=== PATIENT | female | born 1935 | race Caucasian/White ===

== ENCOUNTER 2016-11-12 11:28 | Inpatient (IN) | payer MEDICARE, OTHER ==
[~2016-11-12] VITALS: Ht 152.4 cm; Wt 60.8 kg
[2016-11-12 12:34] LABS: BILIRUBIN 2+ mg/dL (NEGATIVE); BLOOD NEGATIVE Ery/uL (NEGATIVE); CLARITY CLEAR (CLEAR); COLOR YELLOW (YELLOW); GLUCOSE (U) NORMAL (NORMAL); KETONE (U) TRACE mg/dL (NEGATIVE); LEUKOCYTES TRACE Leu/uL (NEGATIVE); NITRITE NEGATIVE (NEGATIVE); PROTEIN 1+ mg/dL (NEGATIVE)
[2016-11-12 12:42] LABS: AMORPHOUS URATES CRYSTALS TRACE; MUCOUS MODERATE
[2016-11-12 12:50] LABS: BASOPHIL 0.3 % (0-2); EOSINOPHIL 2.4 % (0-7); HCT 22.6 % (37.0-47.0); HGB 7.5 g/dl (12.5-16.0); LYMPHOCYTE 9.1 % (15-48); MCH 36.9 pg (25.0-31.0); MCHC 33.2 g/dL (32.0-36.0); MCV 111.3 fL (78.0-100.0); MONOCYTE 7.8 % (0-12); MPV 12.6 fL (6.0-9.5); NEUTROPHIL 80.4 % (41-80); PLT 196 K/uL (150-400); RBC 2.03 M/uL (4.20-5.40); RDW 14.5 % (11.5-14.0); WBC 9.4 K/uL (4.0-10.5)
[2016-11-12 13:02] LABS: ALBUMIN 3.6 g/dL (3.4-4.8); BILIRUBIN - TOTAL 1.3 mg/dL (0.1-1.0); CREATININE 1.3 mg/dL (0.5-1.0); GLOBULIN (CALCULATION) 3.5 g/dL (2.2-4.2); POTASSIUM 3.9 mmol/L (3.5-5.1); TOTAL PROTEIN 7.1 g/dL (6.4-8.3)
[2016-11-12 13:04] LABS: LACTIC ACID 2.2 mmol/L (0.5-2.2)
[2016-11-12 13:12] LABS: TOTAL T4 6.02 ug/dL (5.1-14.1); TSH (THYROID STIM HORMONE) 2.81 uIU/mL (0.270-4.200)
[2016-11-13 08:45] LABS: BASOPHIL 0.2 % (0-2); EOSINOPHIL 0 % (0-7); HCT 27.9 % (37.0-47.0); HGB 9.3 g/dl (12.5-16.0); LYMPHOCYTE 16.1 % (15-48); MCH 34.1 pg (25.0-31.0); MCHC 33.3 g/dL (32.0-36.0); MCV 102.2 fL (78.0-100.0); MONOCYTE 2.7 % (0-12); MPV 11.6 fL (6.0-9.5); PLT 158 K/uL (150-400); RBC 2.73 M/uL (4.20-5.40); RDW 20.1 % (11.5-14.0); WBC 6.2 K/uL (4.0-10.5)
[2016-11-13 09:00] LABS: CREATININE 0.8 mg/dL (0.5-1.0); POTASSIUM 3.9 mmol/L (3.5-5.1)
== END 2016-11-14 12:52 | disposition home or self-care (01) | DRG 193 ==
LOC: FER 11:28 → FMS 15:35
PROVIDERS: Internal Medicine; ADMIT Internal Medicine
PROC: 30233N1 Transfusion of Nonautologous Red Blood Cells into Peripheral Vein, Percutaneous Approach (ICD-10-PCS; principal; 2016-11-12)
DX: J18.9 Pneumonia, unspecified organism (principal); G93.41 Metabolic encephalopathy; N17.9 Acute kidney failure, unspecified; D46.9 Myelodysplastic syndrome, unspecified; K21.9 Gastro-esophageal reflux disease without esophagitis; E03.9 Hypothyroidism, unspecified; F32.9 Major depressive disorder, single episode, unspecified; M19.90 Unspecified osteoarthritis, unspecified site; F41.9 Anxiety disorder, unspecified; Z90.710 Acquired absence of both cervix and uterus; Z96.612 Presence of left artificial shoulder joint; Z87.891 Personal history of nicotine dependence; Z80.9 Family history of malignant neoplasm, unspecified; Z83.3 Family history of diabetes mellitus
CPT/HCPCS: 36415; 36430; 70450; 71020; 80048; 80053; 81001; 83605; 84145; 84436; 84443; 84484; 85025; 86403; 86850; 86900; 86901; 86922; 87040; 87070; 87077; 87186; 87205; 93005; 94010; 94640; 94668; 94762; 97116; 97162; 97165; 97530-GP; 97535; J0456; J2930; P9016

== ENCOUNTER 2020-10-14 23:19 | Emergency (ER) | payer MEDICARE, OTHER ==
[~2020-10-14 23:19] MED LIST: ASPIRIN CHEWABL81 MG PO; AZITHROMYCIN250 MG PO; BUSPAR5 MG PO; CERTAGEN1 EACH PO; CYMBALTA60 MG PO; LASIX20 MG PO; LYRICA25 MG PO; MUCINEX DM ER1 EACH PO; NEBULIZER UNIT NEB; NORCO 5-325 TA1 EACH PO; PRILOSEC20 MG PO; SYNTHROID25 MCG PO; VENTOLIN (2.5 MG/3 M INH; VOLTAREN **OUT50 MG PO; ZPAK PO
[2020-10-14 23:52] LABS: BASOPHIL 0.3 % (0-2); EOSINOPHIL 0.3 % (0-7); HCT 34.5 % (37.0-47.0); HGB 11.3 g/dl (12.5-16.0); LYMPHOCYTE 5.9 % (15-48); MCH 34.8 pg (25.0-31.0); MCHC 32.8 g/dL (32.0-36.0); MCV 106.2 fL (78.0-100.0); MONOCYTE 6.4 % (0-12); NEUTROPHIL 85.1 % (41-80); NRBC 0; PLT 232 K/uL (150-400); RBC 3.25 M/uL (4.20-5.40); RDW 16.6 % (11.5-14.0); WBC 15.3 K/uL (4.0-10.5)
[2020-10-15 00:03] LABS: ALBUMIN 4.3 g/dL (3.4-5.0); BILIRUBIN - TOTAL 2.2 mg/dL (0.2-1.0); BUN/CREAT RATIO (CALC) 35.4 RATIO; CREATININE 1.13 mg/dL (0.51-0.95); GLOBULIN (CALCULATION) 3.1 g/dL; TOTAL PROTEIN 7.4 g/dL (6.4-8.2)
[2020-10-15] MEDS ORDERED: MIRALAX 238GM238 GM PO (01:43)
== END 2020-10-15 02:05 | disposition home or self-care (01) ==
LOC: FER 23:19
PROVIDERS: Emergency Medicine
DX: K59.00 Constipation, unspecified (principal); R50.9 Fever, unspecified; F17.210 Nicotine dependence, cigarettes, uncomplicated
CPT/HCPCS: 36415; 74022; 80053; 85025; J2405; J7040

== ENCOUNTER 2021-02-08 16:09 | Emergency (ER) | payer MEDICARE, OTHER ==
[~2021-02-08 16:09] MED LIST changes: +MIRALAX 238GM238 GM PO
[2021-02-08 17:37] LABS: BASOPHIL 0.6 % (0-2); EOSINOPHIL 1.2 % (0-7); HCT 28.6 % (37.0-47.0); HGB 9.4 g/dl (12.5-16.0); LYMPHOCYTE 20.9 % (15-48); MCH 36.9 pg (25.0-31.0); MCHC 32.9 g/dL (32.0-36.0); MCV 112.2 fL (78.0-100.0); MONOCYTE 4.7 % (0-12); MPV 12.5 fL (6.0-9.5); NEUTROPHIL 72.2 % (41-80); NRBC 0; PLT 224 K/uL (150-400); RBC 2.55 M/uL (4.20-5.40); RDW 15.8 % (11.5-14.0); WBC 6.8 K/uL (4.0-10.5)
[2021-02-08 17:57] LABS: ALBUMIN 3.9 g/dL (3.4-5.0); BILIRUBIN - TOTAL 2.4 mg/dL (0.2-1.0); BUN/CREAT RATIO (CALC) 42.3 RATIO; CREATININE 0.78 mg/dL (0.51-0.95); GLOBULIN (CALCULATION) 3.2 g/dL; POTASSIUM 3.8 mmol/L (3.5-5.1); TOTAL PROTEIN 7.1 g/dL (6.4-8.2)
== END 2021-02-08 22:26 | disposition home or self-care (01) ==
LOC: FER 16:09
PROVIDERS: Emergency Medicine
DX: K59.00 Constipation, unspecified (principal)
CPT/HCPCS: 36415; 80053; 85025; J1170; J2405